=== PATIENT | female | born 1995 | race Caucasian/White ===

== ENCOUNTER 2020-01-23 07:56 | Outpatient (CLI) | payer OTHER ==
--- NOTE | 2020-01-23 09:14 | ULT ---
FOCUSED ULTRASOUND OF RIGHT BREAST: Date: 01/23/2020 COMPARISON: None. HISTORY: 24-year-old female who reports that her physician felt a palpable abnormality within the right breast during a well woman examination. The patient is unable to palpate an abnormality. FINDINGS: Focused ultrasound of the right breast is obtained in the region of which the patient reports her phy sician felt an abnormality. The right breast is imaged at the 9, 10, and 11 o'clock positions. Provid ed imaging demonstrates no evidence for mass lesion. There is dense breast tissue in this region. IMPRESSION: Unremarkable focused ultrasound of the right breast as detailed above. Negative imaging should not de lay biopsy of a clinically suspicious abnormality. POS: [id number]
== END 2020-01-23 07:57 | disposition home or self-care (01) ==
LOC: BICULT 07:56
PROVIDERS: ATTEND Student in an Organized Health Care Education/Training Program
DX: N63.10 Unspecified lump in the right breast, unspecified quadrant (principal)